=== PATIENT | female | born 1975 | race Caucasian/White ===

== ENCOUNTER 2020-07-29 11:26 | Emergency (ER) | payer BC | END 2020-07-29 17:14 | disposition home or self-care (01) | LOC: JVIRT 11:26 | DX: Z11.52 Encounter for screening for COVID-19 (principal) | CPT/HCPCS: C9803; Q3014-GT; U0003 ==

== ENCOUNTER 2020-08-10 10:42 | Emergency (ER) | payer BC | END 2020-08-10 12:17 | disposition home or self-care (01) | LOC: JVIRT 10:42 | DX: Z11.52 Encounter for screening for COVID-19 (principal) | CPT/HCPCS: C9803; G2012-GT; U0003 ==